=== PATIENT | male | born 1985 | race Caucasian/White ===

== ENCOUNTER 2023-12-26 08:16 | Outpatient (AMB) | payer BC, SELFPAY ==
[2023-12-26 08:19] VITALS: BP 118/82; PULSE 67; TEMP 36.9; O2SAT 98; BMI 24.2
--- NOTE | 2023-12-26 08:19 | MHC.OFFWIV ---
Intake Vital Signs 12/26/23 08:19 Height 5 ft 10 in Weight 169 lb BMI 24.2 BP 118/82 Blood Pressure Location Lt brachial Position Sitting Pulse 67 Pulse Source Pulse Oximeter Temp 98.4 F Temp Source Oral Pulse Oximetry (%) 98 Oxygen Delivery Method Room Air Intake Visit Reasons: [employer] cold symptoms Intake Note: pt c/o cold symptoms, Sneezing, cough, congestion, sore throat, headaches. Started Patient Tobacco Use Status: Never used Tobacco Allergies No Known Allergies Allergy (Verified 12/26/23 08:19) Do you need a note to return to daycare/school/sports/work: Yes HPI HPI Comments History of Present Illness Details Patient is a 38-year-old male complaining of 5 days of what started with sneezing and then progress to a sore throat, a productive cough, congestion and headaches. He states his sore throat feels better and the sneezing stopped however the cough is persistent and when he coughs, it gives him a headache but that the headache goes away eventually on its own without any pharmacological intervention. He denies any fevers nausea or diarrhea. However he states last night after he ate dinner, he did have 1 episode of vomiting that hit him suddenly. And he has had no nausea since then. He states that his 3 kids are sick and his daughters home care person came by last week and then tested positive for COVID 6 days ago. States he tested for COVID 3 days ago and it came back negative. 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 His employer is asking him to get a work note. PENDING SALE TO [facility] Social History Patient Tobacco Use Status: Never used Tobacco Review of Systems Const All systems reviewed & are unremarkable except as noted in HPI and below Physical Exam Vital Signs: Last Vital Signs Temp 98.4 F 12/26/23 08:19 Pulse 67 12/26/23 08:19 BP 118/82 12/26/23 08:19 Pulse Ox 98 12/26/23 08:19 Oxygen Delivery Method Room Air 12/26/23 08:19 BMI result Body Mass Index 24.2 Const General: cooperative, healthy appearing, comfortable and no acute distress Orientation/consciousness: patient oriented x3 Limitations: no limitations HEENT Head: Yes normal to inspection Ears: hearing grossly normal bilaterally, external ears normal and TM's normal bilaterally General nose exam: Normal external nose present, Normal nares present and No nasal discharge present Face and sinus: Yes normal facial exam and Yes sinuses nontender Mouth: Normal oral and palatal mucosa present and moist mucous membranes Throat: Yes tonsils normal, Yes uvula midline and Yes posterior oropharynx abnormal (Erythema) Eyes General: appearance normal, both eyes and all related structures Neck Neck: Yes normal visual inspection Resp Effort & Inspection: normal respiratory effort, able to speak in complete sentences, no respiratory distress, not tachypneic, no tripod positioning and no use of accessory muscles Skin General skin exam: no rashes or lesions noted Neuro General: patient oriented x3 Extrem General: Yes normal to inspection and Yes no clubbing, cyanosis or edema Assessment & Plan Assessment & Plan (1) URI (upper respiratory infection): Code(s): J06.9 - Acute upper respiratory infection, unspecified Qualifiers: URI type: unspecified viral URI Qualified Code(s): J06.9 - Acute upper respiratory infection, unspecified Plan: Tested for flu COVID and RSV, recommended [id number] medications to treat his symptoms. Wrote work note to cover him through tomorrow from 12/22, advised if he tests positive for COVID, he should stay out of work until he is symptom-free and fever free for 24 hours. Told him we can rewrite the work note if needed Plan See above Orders: Orders SARS-CoV2/FLU/RSV Today J06.9 - Acute upper respiratory infection, unspecified Coding Level of Care Code New Pt Level 3 (58094) Diagnoses Viral upper respiratory tract infection J06.9 URI type: unspecified viral URI
== END 2023-12-26 08:46 | disposition home or self-care (01) ==
PROVIDERS: Visit Provider Physician Assistant
DX: J06.9 Acute upper respiratory infection, unspecified (principal)
CPT/HCPCS: 99203

== ENCOUNTER 2023-12-26 08:34 | Outpatient (REF) | payer BC, SELFPAY ==
[2023-12-26 11:27] LABS: Influenza A PCR NEGATIVE (Negative); Influenza B PCR NEGATIVE (Negative); Resp Syncy Virus RNA Qual PCR NEGATIVE (Negative); SARS COV2 PCR INHOUSE NEGATIVE (Negative)
== END 2023-12-26 08:35 | disposition home or self-care (01) ==
LOC: HO.LAB 08:34
PROVIDERS: Visit Provider Physician Assistant
DX: J06.9 Acute upper respiratory infection, unspecified (principal)
CPT/HCPCS: 0241U